=== PATIENT | female | born 1965 | race Caucasian/White ===

== ENCOUNTER 2024-08-13 06:55 | Day surgery (SDC) | payer OTHER ==
[2024-08-10 08:28] VITALS: BP 111/76
[~2024-08-13] VITALS: Ht 157.5 cm; Wt 87.0 kg
--- NOTE | ~2024-08-13 | OR ---
[facility] [address], [place] [address] Draft DATE OF OPERATION: 08/13/2024 SURGEON: Florencio Eastman MD PREOPERATIVE DIAGNOSIS: Screening. POSTOPERATIVE DIAGNOSES: 1. Minimal to moderate sigmoid diverticulosis. 2. Redundant tortuous sigmoid and left colon. 3. Minimal internal hemorrhoids. PROCEDURE: Colonoscopy without biopsy. ESTIMATED BLOOD LOSS: None. 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 She developed scoliosis and cannot work any longer. She was asked to see me for her second colonoscopy. She told me in August 2018, she went to [facility] as an outpatient for a colonoscopy. She told me she was using ibuprofen on a daily basis. She stopped that now, used marijuana and alcohol each day. She also had a head injury as a child and told me her memory is not always the best. We could see that in the office as well as today. She has no lower GI complaints. No family history of colon cancer or polyps. In the office I had given her a pamphlet on colonoscopy. We had reviewed the nature of the test. There is risk including, but not limited to gas bloating, crampy abdominal pain, bleeding, perforation requiring surgery, and missed diagnosis. We also reviewed the written instructions for a bowel prep line by line. She also understands the need for monitored anesthesia care given her overall disability along with her daily use of marijuana and alcohol. She also has a very full round face, chest and abdomen. She understands an adult person has to take her home afterwards. Apparently that is going to be her daughter. She had expressed understanding and wished to proceed. DESCRIPTION OF PROCEDURE: Linnea was taken into the endoscopy suite and placed in the left lateral decubitus position. She was given monitored anesthesia care propofol infusion per our nurse pharmaceutical sales. A digital rectal exam was performed and this was unremarkable. There were no external hemorrhoids. She had good sphincter tone. There were no masses. The adult PATIENT NAME: LINNEA DIAZ OPERATIVE REPORT DATE OF : 67 REPORT #: [id number] PHYSICIAN: FLORENCIO EASTMAN MD PCP: IVELISSE LIU PA-C REPORT IS CONFIDENTIAL AND NOT TO BE RELEASED WITHOUT AUTHORIZATION [facility] [address], [place] [address] Draft colonoscope was introduced and advanced under direct visualization of the camera. It took quite a while to get through her tortuous and redundant sigmoid and left colon. She does have diverticula. They were moderate in size, few to moderate in number and scattered about. Once we got into the transverse colon the scope continued to buckle particular in her sigmoid colon. It took extra sedation and moving her into the supine position and abdominal compression to get the scope around and down into the cecum itself. Her prep was moderate. In the future, she should increase the polyethylene glycol up to a full gallon along with some Dulcolax tablets. The scope had been slowly withdrawn. We could see the appendiceal orifice and ileocecal valve. We saw the diverticula. There were no masses. No polyps. Once in the rectum, the scope was retroflexed and she has minimal internal hemorrhoid columns. After this, the gas was suctioned out colonoscope removed. Linnea tolerated the procedure overall well. RECOMMENDATIONS: Linnea can follow up in 10 years for repeat screening colonoscopy. Now that she has two negative scopes, no family history. She should increase her polyethylene glycol up to a full gallon. She will need monitored anesthesia care as always. Florencio Eastman MD ALB/MODL /[id number] cc: Ivelisse Liu PA-C Patient Chart Florencio Eastman MD Copies: IVELISSE LIU PA-C, ANDREW L MD ~ PATIENT NAME: LINNEA DIAZ OPERATIVE REPORT DATE OF : 67 REPORT #: [id number] PHYSICIAN: FLORENCIO EASTMAN MD PCP: IVELISSE LIU PA-C REPORT IS CONFIDENTIAL AND NOT TO BE RELEASED WITHOUT AUTHORIZATION
[~2024-08-13 06:55] MED LIST: CELECOXIB200 MG PO; LISINOPRIL30 MG PO; METHOCARBAMOL750 MG PO; MIDAZOLAM HCL 5 MG/5 ML VIAL IV PRN; TYLENOL EXTRA500 MG PO; WELLBUTRIN SR100 MG PO; fentaNYL citrate 100 MCG/2 ML VIAL IV PRN
[2024-08-13] MEDS ORDERED: LACTATED RINGER'S 1,000 ML IV SCH (07:00)
[2024-08-13] MEDS ORDERED: LIDOCAINE HCL 1% 5 ML SDV INJ ONE (07:00)
[2024-08-13] MEDS ORDERED: IBLOOD GLUCOSE TEST STRIP 1 EA TEST VI PRN (07:00)
[2024-08-13 07:07] VITALS: BP 109/64
[2024-08-13] MEDS ORDERED: propofoL 200 MG/20 ML VIAL ONE (08:00)
[2024-08-13] MEDS ORDERED: LIDOCAINE HCL 2% 5 ML SDV ONE (08:00)
[2024-08-13] MEDS ORDERED: fentaNYL citrate 100 MCG/2 ML VIAL ONE (08:01)
--- NOTE | 2024-08-13 08:40 | NUR ---
08/13/24 0840 Vanessa Chao 0817-PATIENT ARRIVED TO PACU ON 6L MASK RR EVEN PATIENT REACTIVE TO VERBAL STIMULI OPENING EYES REPORTS "IT HURTS" ENCOURAGED TO PASS GAS. LAYING LEFT LATERAL. BP CUFF READJUSTED. ABDOMEN SOFT IVF INFUSING. SR HR 70'S.
[2024-08-13 09:30] VITALS: BP 133/76
== END 2024-08-13 09:45 | disposition home or self-care (01) ==
LOC: DS 06:55
PROVIDERS: ATTEND Colon & Rectal Surgery
PROC: 0DJD8ZZ Inspection of Lower Intestinal Tract, Via Natural or Artificial Opening Endoscopic (ICD-10-PCS; principal; 2024-08-13 08:10)
DX: Z12.11 Encounter for screening for malignant neoplasm of colon (principal); Q43.8 Other specified congenital malformations of intestine; K64.8 Other hemorrhoids; G43.109 Migraine with aura, not intractable, without status migrainosus; I10 Essential (primary) hypertension; M41.20 Other idiopathic scoliosis, site unspecified; M85.80 Other specified disorders of bone density and structure, unspecified site; E66.9 Obesity, unspecified; Z68.36 Body mass index [BMI] 36.0-36.9, adult; Z79.899 Other long term (current) drug therapy
CPT/HCPCS: J2003; J2704; J3010; J7121